=== PATIENT | male | born 1970 | race Caucasian/White ===

== ENCOUNTER 2017-07-12 12:48 | Emergency (ER) | payer OTHER ==
[2017-07-12 12:55] VITALS: BP 128/89; PULSE 82; TEMP 98.2; BMI 34.7
--- NOTE | 2017-07-12 13:06 | PDOC ---
History of Present Illness - General Chief Complaint: Wound Stated Complaint: ABSCESS BOIL Time Seen by Provider: 07/12/17 13:02 History Source: Patient Exam Limitations: No Limitations - History of Present Illness Initial Comments: 07/12/17 13:27 Patient is a 46-year-old male past medical history of asthma, who presents emergency department today complaining of skin changes on his left lower leg. Patient states that he had a bump on his left lower calf approximately 1 month ago. He states that it got bigger and then in the ruptured. There was drainage at the time. However since then he states that there is been crusted skin over the area. He has not seen his PCP for this. Denies fevers, chills, shortness of breath, nausea, vomiting, diarrhea, gait changes, pain. Past History - Travel Traveled outside of the country in the last 30 days: No Close contact w/someone who was outside of country & ill: No - Past Medical History Allergies/Adverse Reactions: Allergies Allergy/AdvReac Type Severity Reaction Status Date / Time Penicillins Allergy Verified 07/12/17 12:51 Home Medications: Ambulatory Orders Mupirocin 1 gm TP BID #60 g 07/12/17 Asthma: Yes COPD: No Diabetes: No HTN: No Hypercholesterolemia: No - Suicide/Smoking/Psychosocial Hx Smoking History: Never smoked Have you smoked in the past 12 months: No Hx Alcohol Use: No Drug/Substance Use Hx: No Substance Use Type: None Review of Systems - Review of Systems Able to Perform ROS?: Yes Comments:: 07/12/17 13:06 CONSTITUTIONAL: Absent: fever, chills, diaphoresis, generalized weakness, malaise, loss of appetite MUSCULOSKELETAL: Absent: myalgia, arthralgia, joint swelling SKIN: Present: skin changes to L lower leg, dry skin. Absent: rash, itching, pallor, pain NEUROLOGIC: Absent: headache, focal weakness or paresthesias, dizziness, unsteady gait, seizure, mental status changes, bladder or bowel incontinence Is the patient limited [place] proficient: No *Physical Exam - Vital Signs Last Vital Signs Temp Pulse Resp BP Pulse Ox 98.2 F 82 18 128/89 99 07/12/17 12:52 07/12/17 12:52 07/12/17 12:52 07/12/17 12:52 07/12/17 12:52 - Physical Exam Comments: 07/12/17 13:06 GENERAL: Well developed, well nourished. Awake and alert. No acute distress. MUSCULOSKELETAL Normal range of motion at all joints. No bony deformities or tenderness. No CVA tenderness. EXTREMITIES: No cyanosis. No clubbing. No edema. No calf tenderness. SKIN: There is a 2cm round area of dry, yellow skin over the distal posterior calf. No drainage, erythema, fluctuace. Warm and dry. Normal capillary refill. No rashes. No jaundice. NEUROLOGICAL: Alert, awake, appropriate. Cranial nerves 2-12 intact. No deficits to light touch and temperature in face, upper extremities and lower extremities. No motor deficits in the in face, upper extremities and lower extremities. Normoreflexic in the upper and lower extremities. Normal speech. Toes are down- going bilaterally. Gait is normal without ataxia. Medical Decision Making - Medical Decision Making 07/12/17 13:30 Patient is a 46-year-old male with past medical history of asthma who presents emergency Department with excess skin over the distal posterior calf. There was probably a pimple or small and boil at the time it started approximately 1 month ago. Now it looks like there was a rupture of the boil and there is excess dry skin surrounding the area. No obvious infection at this time. No fevers. We'll treat to remove the dry skin. Recommended mupirocin and warm water soaks. Patient told to follow up with primary care. Return precautions given. Patient understand all discharge instructions and all questions were answered. *DC/Admit/Observation/Transfer Diagnosis at time of Disposition: Impetigo - Discharge Dispostion Disposition: HOME Condition at time of disposition: Stable Admit: No - Prescriptions Prescriptions: Mupirocin 1 gm TP BID #60 g - Referrals Referrals: Livan Longoria [Primary Care Provider] - - Patient Instructions Printed Discharge Instructions: DI for Impetigo Additional Instructions: Please use the mupirocin over the site twice a day for the next week. Please soak the lower leg 3-4 times a day to help remove the excess skin. Please follow-up with your primary care doctor in 1 week. Return to the emergency department do not fevers, chills, leg pain, or have any changes in your symptoms. Utilice la mupirocina en el sitio dos veces al da mike la prxima semana. Por favor, remoje la parte inferior de la pierna 3-4 veces al da para ayudar a eliminar el exceso de piel. Por favor aurora un seguimiento con nixon mdico de atencin primaria en 1 semana. Regrese a la bubba de emergencias para evitar fiebres, escalofros, dolor en las piernas o cambios en gilberto sntomas. Print Language: ARMENIAN - Post Discharge Activity Forms/Work/School Notes: Back to Work
== END 2017-07-12 13:27 | disposition home or self-care (01) ==
LOC: JERFT 12:48
DX: L01.09 Other impetigo (principal); Z87.09 Personal history of other diseases of the respiratory system
CPT/HCPCS: 99281-25